=== PATIENT | male | born 1970 | race Caucasian/White ===

== ENCOUNTER 2020-02-22 07:22 | Outpatient (REF) | payer OTHER, SELFPAY | END 2020-02-22 07:23 | disposition home or self-care (01) | LOC: HO.LAB 07:22 | PROVIDERS: Visit Provider Internal Medicine | DX: Z20.828 Contact with and (suspected) exposure to other viral communicable diseases (principal) | CPT/HCPCS: C9803; U0003 ==

== ENCOUNTER 2020-04-28 09:15 | Outpatient (REF) | payer OTHER, SELFPAY ==
[2020-04-28 09:33] LABS: COVID-19 Test Negative (Negative)
== END 2020-04-28 09:16 | disposition home or self-care (01) ==
LOC: HO.EMPCOV 09:15
PROVIDERS: Visit Provider Internal Medicine
DX: Z20.822 Contact with and (suspected) exposure to COVID-19 (principal)
CPT/HCPCS: 36415; 87635; C9803

== ENCOUNTER 2020-05-02 06:59 | Outpatient (REF) | payer OTHER, SELFPAY ==
[2020-05-02 07:17] LABS: COVID-19 Test Negative (Negative)
== END 2020-05-02 07:00 | disposition home or self-care (01) ==
LOC: HO.EMPCOV 06:59
PROVIDERS: Visit Provider Internal Medicine
DX: Z20.822 Contact with and (suspected) exposure to COVID-19 (principal)
CPT/HCPCS: 36415; 87635; C9803

== ENCOUNTER 2020-11-18 08:03 | Outpatient (REF) | payer OTHER, SELFPAY ==
[2020-11-18 08:42] LABS: MANUAL DIFF FLAG NO
[2020-11-18 09:13] LABS: Basophils Percent Auto 0.6 % (0-2); Eosinophils Absolute Auto 0.1 X10*3/uL (0.0-0.4); Eosinophils Percent Auto 1.7 % (0-4); Hematocrit 39.7 % (42-52); Hemoglobin 13.3 g/dl (14.0-18.0); Imm Gran Abs Auto 0.01 X10*3/uL (0.00-0.03); Imm Gran Pct Auto 0.2 % (0.0-0.4); Lymphocytes Absolute Auto 1.4 X10*3/uL (1.2-4.9); Lymphocytes Percent Auto 28.7 % (20-40); Mean Corpuscular HGB Conc 33.5 g/dl (31.0-36.0); Mean Corpuscular Volume 95.4 fL (80-98); Mean Platelet Volume 9.2 fL (9.4-12.4); Monocytes Absolute Auto 0.6 X10*3/uL (0.1-1.2); Neutrophils Absolute Auto 2.6 X10*3/uL (2.0-8.3); Neutrophils Percent Auto 55.8 % (45-73); Platelet Count 238 X10*3/uL (160-400); Red Blood Count 4.16 X10*6/uL (4.60-5.80); Red Cell Distribution Width 12.5 % (11.0-16.0); White Blood Count 4.7 X10*3/uL (4.8-10.8)
[2020-11-18 09:36] LABS: Alanine Aminotransferase 28 U/L (0-40); Albumin Level 4.6 g/dL (3.5-5.0); Alkaline Phosphatase 77 U/L (39-117); Anion Gap 12 (12-20); Aspartate Amino Transferase 22 U/L (5-37); Bilirubin Direct 0.4 mg/dL (0.0-0.5); Bilirubin Total 1.1 mg/dL (0.0-1.0); Blood Urea Nitrogen 14 mg/dL (9-16); Calcium 9.5 mg/dL (8.4-10.2); Carbon Dioxide 27 mmol/L (22-29); Chloride 104 mmol/L (96-108); Cholesterol 180 mg/dL; Estimated Glomerular Filt Rate > 60; Glucose Random 90 mg/dL (60-115); HDL Cholesterol 70 mg/dL; LDL Cholesterol Calculated 92 mg/dl; Potassium 4.5 mmol/L (3.3-5.1); Sodium 138 mmol/L (135-145); Total Protein 7.2 g/dL (6.5-8.0); Triglycerides 91 mg/dL
[2020-11-18 09:59] LABS: Thyroid Stimulating Hormone 2.37 uIU/mL (0.32-4.0)
[2020-11-18 10:05] LABS: Prostate Specific Antigen 0.31 ng/mL (<0.05-4.0)
== END 2020-11-18 08:04 | disposition home or self-care (01) ==
LOC: HO.LAB 08:03
PROVIDERS: PCP Physician Assistant Medical; Visit Provider Physician Assistant Medical
DX: Z00.00 Encounter for general adult medical examination without abnormal findings (principal); Z12.5 Encounter for screening for malignant neoplasm of prostate; L64.9 Androgenic alopecia, unspecified; R31.29 Other microscopic hematuria; Z80.42 Family history of malignant neoplasm of prostate
CPT/HCPCS: 36415; 80048; 80061; 80076; 84153; 84443; 85025

== ENCOUNTER → 2021-05-11 15:41 | Outpatient (BNVA) | payer OTHER, SELFPAY | PROVIDERS: PCP Physician Assistant Medical; Visit Provider Orthopaedic Surgery ==

== ENCOUNTER 2021-05-15 15:03 | Outpatient (REF) | payer OTHER, SELFPAY | END 2021-05-15 15:04 | disposition home or self-care (01) | LOC: HO.HOSX 15:03 | PROVIDERS: Visit Provider Orthopaedic Surgery | DX: Z13.89 Encounter for screening for other disorder (principal) ==

== ENCOUNTER 2021-05-18 15:07 | Outpatient (REF) | payer OTHER, SELFPAY ==
--- NOTE | ~2021-05-18 | XR_ITS ---
EXAMINATION: BILATERAL KNEE STANDING AND RIGHT KNEE 2 VIEWS. CLINICAL INFORMATION: Pain right knee COMPARISON: None TECHNIQUE: AP bilateral knee standing and right knee 2 views FINDINGS: AP bilateral knee: Bilateral medial and lateral compartment joint space is maintained normal. No bony erosive changes. No fracture, loose bodies seen. The soft tissues are normal. Right knee: There is mild loss of patellofemoral compartment joint space. Superior patellar spurring. No loose bodies or bony erosive changes seen. No acute fracture or dislocation. XR/XR knee RT 2V IMPRESSION: Unremarkable AP bilateral knees standing. Mild degenerative patellofemoral compartment changes with superior patellar spurring. No abnormal joint effusion seen.
--- NOTE | ~2021-05-18 | XR_ITS ---
EXAMINATION: BILATERAL KNEE STANDING AND RIGHT KNEE 2 VIEWS. CLINICAL INFORMATION: Pain right knee COMPARISON: None TECHNIQUE: AP bilateral knee standing and right knee 2 views FINDINGS: AP bilateral knee: Bilateral medial and lateral compartment joint space is maintained normal. No bony erosive changes. No fracture, loose bodies seen. The soft tissues are normal. Right knee: There is mild loss of patellofemoral compartment joint space. Superior patellar spurring. No loose bodies or bony erosive changes seen. No acute fracture or dislocation. XR/XR knee standing BI IMPRESSION: Unremarkable AP bilateral knees standing. Mild degenerative patellofemoral compartment changes with superior patellar spurring. No abnormal joint effusion seen.
== END 2021-05-18 15:08 | disposition home or self-care (01) ==
LOC: HO.XRAY 15:07
PROVIDERS: Visit Provider Orthopaedic Surgery
DX: M25.561 Pain in right knee (principal)
CPT/HCPCS: 73560; 73565

== ENCOUNTER 2021-06-20 09:35 | Outpatient (REF) | payer OTHER, SELFPAY ==
[2021-06-20 10:02] LABS: MANUAL DIFF FLAG NO
[2021-06-20 10:44] LABS: Basophils Percent Auto 0.5 % (0-2); Eosinophils Absolute Auto 0.1 X10*3/uL (0.0-0.4); Eosinophils Percent Auto 1.4 % (0-4); Imm Gran Abs Auto 0.01 X10*3/uL (0.00-0.03); Imm Gran Pct Auto 0.2 % (0.0-0.4); Lymphocytes Absolute Auto 1.5 X10*3/uL (1.2-4.9); Lymphocytes Percent Auto 36.1 % (20-40); Mean Corpuscular HGB Conc 33.3 g/dl (31.0-36.0); Mean Corpuscular Hemoglobin 31.9 pg (27.0-33.0); Mean Corpuscular Volume 95.6 fL (80.0-98.0); Mean Platelet Volume 9.4 fL (9.4-12.4); Monocytes Absolute Auto 0.5 X10*3/uL (0.1-1.2); Monocytes Percent Auto 10.7 % (2-11); Neutrophils Absolute Auto 2.2 x10*3/uL (2.0-8.3); Neutrophils Percent Auto 51.1 % (45-73); Platelet Count 252 X10*3/uL (160-400); Red Blood Count 4.08 X10*6/uL (4.60-5.80); Red Cell Distribution Width 12.7 % (11.0-16.0); White Blood Count 4.2 X10*3/uL (4.8-10.8)
[2021-06-20 11:16] LABS: Alanine Aminotransferase 19 U/L (0-40); Albumin Level 4.7 g/dL (3.5-5.0); Alkaline Phosphatase 64 U/L (39-117); Anion Gap 11 (12-20); Aspartate Amino Transferase 20 U/L (5-37); Bilirubin Direct 0.5 mg/dL (0.0-0.5); Bilirubin Total 1.2 mg/dL (0.0-1.0); Blood Urea Nitrogen 13 mg/dL (9-16); Calcium 10.2 mg/dL (8.4-10.2); Carbon Dioxide 30 mmol/L (22-29); Chloride 103 mmol/L (96-108); Cholesterol 160 mg/dL; Estimated Glomerular Filt Rate > 60; Glucose Random 89 mg/dL (60-115); HDL Cholesterol 76 mg/dL; LDL Cholesterol Calculated 71 mg/dl; Potassium 4.4 mmol/L (3.3-5.1); Sodium 140 mmol/L (135-145); Total Protein 7.4 g/dL (6.5-8.0); Triglycerides 65 mg/dL
[2021-06-20 11:36] LABS: Prostate Specific Antigen 0.26 ng/mL (<0.05-4.0)
== END 2021-06-20 09:36 | disposition home or self-care (01) ==
LOC: HO.LAB 09:35
PROVIDERS: PCP Physician Assistant Medical; Visit Provider Physician Assistant Medical
DX: Z00.00 Encounter for general adult medical examination without abnormal findings (principal); Z12.5 Encounter for screening for malignant neoplasm of prostate; L64.9 Androgenic alopecia, unspecified; R31.29 Other microscopic hematuria; Z80.42 Family history of malignant neoplasm of prostate
CPT/HCPCS: 36415; 80048; 80061; 80076; 84153; 85025

== ENCOUNTER 2021-07-13 17:00 | Outpatient (RCR) | payer OTHER, SELFPAY ==
--- NOTE | 2021-06-08 14:21 | MHC.PT.EP ---
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 pt presents to physical therapy with pain, decreased range of motion, decreased strength, impaired functional mobility, impaired postural awareness, and gait deviations. pt is a good candidate for skilled PT due to age, potential remediation of impairments, typical disease/condition progression and prognosis, comorbidities, and motivation. pt would benefit from tailored strengthening and stretching exercise program, functional training, gait training, postural re-training, neuromuscular re-education, modalities as needed for pain, equipment safety demonstration. Frequency and Duration: The patient will be seen 2x/wk for 4 wks Short Term Goals: pt will be I w/ HEP to promote self-management of condition. pt will improve B hip abduction to 5/5 to remediate gait impairments on even ground. Hotel Manager Goals: pt will report a statistically significant improvement in self-reported outcome measure, LEFI, to promote return to PLOF. pt will perform squat w/ proper form and mechanics w/ no verbal cueing to promote return to pain-free bending for self-care activities. Treatment Plan: Modalities to reduce pain, spasms and effusion. Manual therapy to restore motion and function. Therapeutic exercise to improve strength and flexibility. Neuromuscular re-education for posture and balance. Therapeutic activities to return to functional activities of daily living. Electronically signed by: Janice South PT, DPT Please sign and return to therapist. Thank you for your referral.
--- NOTE | 2021-08-15 11:08 | MHC.PT.DC ---
[facility] [place] [facility] [place] [facility] [place] [facility] [address] Kylee Mason [address] [phone] F: [phone] F: [phone] F: [phone] F: [phone] Physical Therapy Discharge Report Diagnosis: pain in unspecified knee (R knee) Date of Surgery: N/A Date of Evaluation: 06/07/21 Date of Discharge: 08/15/21 Treatments to Date: 7 Cancellations to Date: 4 No Shows to Date: 1 Discharge Status: Improved Function Independent with HEP Discharge Summary: The patient was overall reporting less intense and less frequent pain. He was able to return to soccer with no pain to mild discomfort only. He was reporting improved tolerance of navigating stairs. He is independent with his home exercise program. He is discharged from this physical therapy plan of care to his HEP. Electronically signed by: Janice South PT, DPT Please sign and return to therapist. Thank you for your referral.
== END 2021-08-15 11:09 | disposition home or self-care (01) ==
LOC: HO.PT 17:00
PROVIDERS: Visit Provider Orthopaedic Surgery
DX: M25.561 Pain in right knee (principal)
CPT/HCPCS: 97110; 97140; 97161; 97530